=== PATIENT | female | born 1990 | race Caucasian/White ===

== ENCOUNTER 2018-10-22 19:44 | Emergency (ER) | payer OTHER ==
[2018-10-22 19:53] VITALS: BP 142/89; PULSE 78; TEMP 98; BMI 28.3
--- NOTE | 2018-10-22 19:55 | PDOC ---
Rapid Medical Evaluation Chief Complaint: Shortness of Breath Time Seen by Provider: 10/22/18 19:53 Medical Evaluation: Allergies Allergy/AdvReac Type Severity Reaction Status Date / Time No Known Allergies Allergy Verified 02/04/16 11:43 10/22/18 19:53 I have performed a brief in-person evaluation of this patient. The patient presents with a chief complaint of: with depression presenting with SOB and malaise after sniffing heroid which caused her to have syncopal episode 3 days ago and was sent to [facility] 2 days ago and she eloped but report has not been feeling right since then. report palpitations Pertinent physical exam findings: A&O x 3. heart RRR I have ordered the following:EKG, Utox, cbc, cmp, UA The patient will proceed to the ED for further evaluation Discharge Disposition - Diagnosis Heroin abuse, SOB (shortness of breath) - Referrals - Patient Instructions - Post Discharge Activity
--- NOTE | 2018-10-22 20:09 | PDOC ---
History of Present Illness - General Chief Complaint: Shortness of Breath Stated Complaint: SHORTNESS OF BREATH Time Seen by Provider: 10/22/18 19:53 - History of Present Illness Initial Comments: 10/22/18 20:07 28 yo F with h/o anxiety, depression, PCP, and Heroin abuse who p/w chest pain. Patient reports pleuritic, non radiating, unremitting, retrosternal chest pain worse with deep inhalation, and touch. Also endorses exertional shortness of breath (10/20/18) . Patient with recent overdose on Heroin, and fentanyl (). Reports EMS waking up in the street, with last memory of being in a laundry mat. Received 4 mg Narcan, and then later eloped from outside ED. Patient also endorses using PCP earlier that day. Pt. also reports feeling nervous and tremulous. Patient ran out of home dose Depakote 500 mg, Seroquel 200 mg, Clonazepam 2mg. Patient to f/u with psych tomorrow Dr. Columba Busby at [facility]. Patient denies N/V, F/C, HERNANDEZ, vision change, dysphagia, palpitations, orthopnea, PND, leg pain/swelling, urinary complaints, hematuria, BPR, abdominal pain, diarrhea, constipation, lightheadedness, weakness, sensory changes. PMHx: as noted above. Denies h/o ACS/NJ, stent placement, PE/DVT. ROS: as noted SHx: Recreational tobacco, and Etoh use. Allergies: NKDA Past History - Past Medical History Allergies/Adverse Reactions: Allergies Allergy/AdvReac Type Severity Reaction Status Date / Time No Known Allergies Allergy Verified 10/22/18 19:53 Home Medications: Ambulatory Orders NK [No Known Home Medication] 05/15/15 COPD: No Psychiatric Problems: Yes (DEPRESSION ANXIETY) - Surgical History Cholecystectomy: Yes - Immunization History Immunization Up to Date: Yes - Suicide/Smoking/Psychosocial Hx Smoking History: Current some day smoker Information on smoking cessation initiated: No Hx Alcohol Use: No Drug/Substance Use Hx: No Substance Use Type: Heroin, Opiates Review of Systems - Review of Systems Comments:: 10/22/18 20:07 GENERAL/CONSTITUTIONAL: No fever or chills. No weakness. HEAD, EYES, EARS, NOSE AND THROAT: No change in vision. No ear pain or discharge. No sore throat. CARDIOVASCULAR: No chest pain or shortness of breath RESPIRATORY: No cough, wheezing, or hemoptysis. GASTROINTESTINAL: No nausea, vomiting, diarrhea or constipation. GENITOURINARY: No dysuria, frequency, or change in urination. MUSCULOSKELETAL: No joint or muscle swelling or pain. No neck or back pain. SKIN: No rash NEUROLOGIC: No headache, vertigo, loss of consciousness, or change in strength/ sensation. ENDOCRINE: No increased thirst. No abnormal weight change HEMATOLOGIC/LYMPHATIC: No anemia, easy bleeding, or history of blood clots. ALLERGIC/IMMUNOLOGIC: No hives or skin allergy. *Physical Exam - Vital Signs Last Vital Signs Temp Pulse Resp BP Pulse Ox 98 F 78 18 142/89 100 10/22/18 19:47 10/22/18 19:47 10/22/18 19:47 10/22/18 19:47 10/22/18 19:47 - Physical Exam Comments: 10/22/18 20:08 GENERAL: Awake, alert, and fully oriented, in no acute distress HEAD: No signs of trauma, normocephalic, atraumatic EYES: PERRLA, EOMI, sclera anicteric, conjunctiva clear ENT: Hearing grossly normal, nares patent, oropharynx clear without exudates. Moist mucosa NECK: Normal ROM, supple, no lymphadenopathy, JVD, or masses LUNGS: No distress, speaks full sentences, clear to auscultation bilaterally HEART: Regular rate and rhythm, normal S1 and S2, no murmurs, rubs or gallops, peripheral pulses normal and equal bilaterally. CHEST: + Sternal ttp, with absent crepitus, and bony deformity. ABDOMEN: Soft, nontender, normoactive bowel sounds. No guarding, no rebound. No masses EXTREMITIES : Normal inspection, Normal range of motion, no edema. No clubbing or cyanosis. s SKIN: Warm, Dry, normal turgor, no rashes or lesions noted Moderate Sedation - Procedure Monitoring Vital Signs: Procedure Monitoring Vital Signs Temperature 98 F 10/22/18 19:47 Pulse Rate 78 10/22/18 19:47 Respiratory Rate 18 10/22/18 19:47 Blood Pressure 142/89 10/22/18 19:47 O2 Sat by Pulse Oximetry (%) 100 10/22/18 19:47 ED Treatment Course - LABORATORY CBC & Chemistry Diagram: 10/22/18 20:09 10/22/18 20:09 Medical Decision Making - Medical Decision Making 10/22/18 20:37 28 yo F with h/o anxiety, depression, PCP, and Heroin abuse who p/w pleuritic, non-radiating, unremitting, retrosternal chest pain worse with deep inhalation, and SOB. VSS, AF, A&OX3. + Reproducible sternal chest wall ttp. Physcial exam otherwise unremarkable. ACS/NJ r/o. R/o PNA. Possible MSK related pain, costochondritis. Low suspicion Ao dissection, Borhaave. NSAID, reassess. ED Course: [facility] Lab eval, EKG, CXR 10/22/18 20:43 10/22/18 20:45 EKG: NSR with absent DEBRA, STD. Nml interval duration and axis. 10/22/18 21:57 CBC,CMP: Unremarkable UA: Neg UDS: + PCP, Benzo 10/22/18 23:51 Preliminary CXR: unremarkable Patient pain stable. D/c with return precautions. Advised to f/u with PMD. *DC/Admit/Observation/Transfer Diagnosis at time of Disposition: Heroin abuse, SOB (shortness of breath) Chest pain Qualifiers: Chest pain type: chest pain on breathing Qualified Code(s): R07.1 - Chest pain on breathing - Discharge Dispostion Condition at time of disposition: Stable Decision to Admit order: No - Referrals Referrals: Delfino Markham MD [Primary Care Provider] - - Patient Instructions Printed Discharge Instructions: DI for Atypical Chest Pain Additional Instructions: Please return to the emergency department with any new or worsening symptoms or concerns. Please follow up with your primary care physician within 72 hours. - Post Discharge Activity Forms/Work/School Notes: Back to Work - Transfer to Acute Care Facility Transfer comment: 10/22/18 20:08 I attest to the information provided in this note. - Attestations Physician Attestion: 10/22/18 20:40 I attest to the information provided in this note.
[2018-10-22 20:29] LABS: BASO % 0.6 % (0-2.0); EOS % 2.5 % (0-4.5); HEMATOCRIT 38.9 % (32.4-45.2); HEMOGLOBIN 13.6 GM/dL (10.7-15.3); LYMPH % 30.3 % (8-40); MCH 29.6 pg (25.7-33.7); MEAN CELL VOLUME 84.7 fl (80-96); MEAN PLT VOLUME 8.4 fl (7.5-11.1); NEUT % 61.6 % (42.8-82.8); PLATELET COUNT 245 K/MM3 (134-434); RDW 13.9 % (11.6-15.6); WHITE BLOOD COUNT 7.8 K/mm3 (4.0-10.0)
[2018-10-22 20:32] LABS: URINE APPEARANCE CLEAR; URINE BILIRUBIN NEGATIVE (<2.0 mg/dL); URINE COLOR LTYELLOW; URINE GLUCOSE (UA) NEGATIVE (NEGATIVE); URINE KETONE NEGATIVE (NEGATIVE); URINE LEUK ESTERASE NEGATIVE (NEGATIVE); URINE NITRITE NEGATIVE (NEGATIVE); URINE PROTEIN NEGATIVE (NEGATIVE); URINE UROBILINOGEN NEGATIVE mg/dL (0.2-1.0)
[2018-10-22 21:05] LABS: ALBUMIN 3.7 g/dl (3.4-5.0); ALK PHOS 81 U/L (45-117); ANION GAP 8 MMOL/L (8-16); BILIRUBIN,TOTAL 0.2 mg/dL (0.2-1); BLOOD UREA NITROGEN 10 mg/dL (7-18); CALCIUM 8.8 mg/dL (8.5-10.1); CHLORIDE 107 mmol/L (98-107); CO2 28 mmol/L (21-32); CREATININE 0.9 mg/dL (0.55-1.3); GLUCOSE,RANDOM 68 mg/dL (74-106); SGOT/AST 9 U/L (15-37); SGPT/ALT 17 U/L (13-61); SODIUM 143 mmol/L (136-145); TOT PROT 7.7 g/dl (6.4-8.2)
--- NOTE | 2018-10-22 21:21 | PDOC ---
Attending Attestation - Resident Resident Name: OluKeyonMaximilian - ED Attending Attestation I have performed the following: I have examined & evaluated the patient, The case was reviewed & discussed with the resident, I agree w/resident's findings & plan, Exceptions are as noted - HPI HPI: 10/22/18 21:20 28y F hx of anxiety/depression presents with complaint of chest pain. On friday pt tried heroin that was cut with fentanyl for the first time and had passed out, EMS was called and ptw as given chest compressions and narcan. Was sent to [facility] and was there for 2 hrs and eloped. Pt states since then she has been having mild chest pain that is worse when she moves. she endorses some intermittent sob that is non exertional, also endorses some anxiety - notes she ran out of her meds for the past 3 days. Pt came today as she was concerned with the way she was feeling. pt denies any vomiting, abd pain, back pain, leg swelling, hemoptysis, fever/chils, cough. - Physicial Exam PE: 10/22/18 22:07 GENERAL: The patient is awake, alert, and fully oriented, Nontoxic - in no acute distress. HEAD: Normocephalic, atraumatic. EYES: extraocular movements intact, sclera anicteric, conjunctiva clear. ENT: Normal voice, Moist mucous membranes. NECK: Normal range of motion, supple LUNGS: Breath sounds equal, clear to auscultation bilaterally. No wheezes, no rhonchi, no rales. HEART: Regular rate and rhythm, normal S1 and S2 without murmur, rub or gallop. CHEST: mild reprodible midsternal cp ABDOMEN: Soft, nontender, No guarding, no rebound. No CVA tenderness EXTREMITIES: Normal range of motion, no edema, neg homans, no calf tendnress NEUROLOGICAL: No facial assymetry, Normal speech, moving all 4 extremities sptonaneously, PSYCH: Normal mood, normal affect. SKIN: Warm, Dry, normal turgor, - Medical Decision Making 10/22/18 22:08 Suspect that the patient's pain is secondary to her chest compressions and is muscular nature. Her other symptoms may be mild withdrawal symptoms. she is otherwise well-appearing in no distress she has an appointment with her psychiatrist tomorrow. No SI or HI. Discussed cessation of drug use with the patient. Will discharge with PMD follow-up Heart Score/ECG Review - ECG Impressions Comment:: 10/22/18 22:08 Twelve-lead EKG was performed and reviewed by me. There is normal sinus rhythm with a normal rate. rate of 69 The axis is normal. The intervals are normal. There is normal R wave progression There are no ST or T wave abnormalities. Impression: Normal twelve-lead EKG
[2018-10-22 21:36] LABS: COCAINE, UR NEGATIVE ng/ml (CUTOFF=300); METHADONE, UR NEGATIVE ng/ml (CUTOFF=300); OPIATES, URI NEGATIVE ng/ml (CUTOFF=300); URINE AMPHETAMINES NEGATIVE ng/ml (CUTOFF=500); URINE BARBITURATES NEGATIVE ng/ml (CUTOFF=200)
[2018-10-22 21:57] LABS: PHENCYCLIDINE,URINE POSITIVE ng/ml (CUTOFF=25); URINE BENZODIAZEPINES POSITIVE ng/ml (CUTOFF=200)
[2018-10-22] MEDS ORDERED: QUEtiapine FUMARATE 200 MG TABLET PO ONE (22:05)
[2018-10-22] MEDS ORDERED: QUEtiapine FUMARATE 100 MG TABLET (FP) ONE (22:25)
--- NOTE | 2018-10-24 17:25 | EKG ---
Test Reason : Blood Pressure : / mmHG Vent. Rate : 069 BPM Atrial Rate : 069 BPM P-R Int : 126 ms QRS Dur : 070 ms QT Int : 410 ms P-R-T Axes : 060 035 053 degrees QTc Int : 439 ms NORMAL SINUS RHYTHM WITH SINUS ARRHYTHMIA NORMAL ECG NO PREVIOUS ECGS AVAILABLE Confirmed by MD NICHO, NAI ([id number]) on 10/24/2018 5:24:37 PM Referred By: Confirmed By:NAI TORRE MD
== END 2018-10-23 00:47 | disposition home or self-care (01) ==
LOC: JER 19:44
DX: R07.89 Other chest pain (principal); R06.02 Shortness of breath; F11.10 Opioid abuse, uncomplicated
CPT/HCPCS: 36415; 71046-TC-FY; 80053; 80307; 81003; 82550; 84484; 84703; 85025; 86593; 87389; 87491; 87591; 93005; 93010; 99283-25

== ENCOUNTER 2019-05-13 08:57 | Inpatient (IN) | payer OTHER ==
[2019-05-13 10:40] VITALS: BMI 31.3
--- NOTE | 2019-05-13 12:47 | HP ---
COWS - Scale Resting Pulse: 0= [place] 80 or Below Sweatin= Chills/Flushing Restless Observation: 0= Sits Still Pupil Size: 0= Normal to Room Light Bone or Joint Aches: 4=Acute Joint/Muscle Pain Runny Nose/ Eye Tearin= Runny Nose/Eyes GI Upset > 30mins: 1= Stomach Cramp Tremor Observation: 0= None Yawning Observation: 0= None Anxiety or Irritability: 2=Irritable/Anxious Goose Flesh Skin: 0=Smooth Skin COWS Score: 10 CIWA Score - Admission Criteria OASAS Guidelines: Admission for Medically Managed Detox: Requires at least one of the followin. CIWA greater than 12 2. Seizures within the past 24 hours 3. Delirium tremens within the past 24 hours 4. Hallucinations within the past 24 hours 5. Acute intervention needed for co occurring medical disorder 6. Acute intervention needed for co occurring psychiatric disorder 7. Severe withdrawal that cannot be handled at a lower level of care (continued vomiting, continued diarrhea, abnormal vital signs) requiring intravenous medication and/or fluids 8. Admission ROS [facility] Allergies/Adverse Reactions: Allergies Allergy/AdvReac Type Severity Reaction Status Date / Time No Known Allergies Allergy Verified 05/13/19 10:29 History of Present Illness: pt here requesting detox from heroin use , reports 6 bags/day via inhalation , use since 2018 , this is the pt's first detox episode , latest use yesterday 7 pm , current symptoms as above . cannabis - " not too much " tobacco : " a few a day " pcp : 2 weeks ago denies other illicits or etoh . PMHX : denies PSHX : denies psych : depression, anxiety , bipolar d/o , has own psych @ [facility] 05/01/19 upt neg , children ages 10 & 8 w/ bio father in [place] shx : lives alone , unemployed Search Terms: juana aguayo, 1990 Search Date: 05/13/2019 12:56:18 PM The Drug Utilization Report below displays all of the controlled substance prescriptions, if any, that your patient has filled in the last twelve months. The information displayed on this report is compiled from pharmacy submissions to the Department, and accurately reflects the information as submitted by the pharmacies. This report was requested by: Mari Torres | Reference #: [id number] There are no results for the search terms that you entered. Exam Limitations: Clinical Condition - Ebola screening Have you traveled outside of the country in the last 21 days: No Have you had contact with anyone from an Ebola affected area: No Do you have a fever: No - Review of Systems Constitutional: See HPI EENT: reports: Other (glasses) Respiratory: reports: No Symptoms reported Cardiac: reports: No Symptoms Reported GI: reports: No Symptoms Reported : reports: No Symptoms Reported Musculoskeletal: reports: Muscle Pain Integumentary: reports: No Symptoms Reported Neuro: reports: No Symptoms reported Endocrine: reports: No Symptoms Reported Psychiatric: reports: Orientated x3, Depressed Patient History - Patient Medical History Hx Chronic Obstructive Pulmonary Disease (COPD): No - Patient Surgical History Hx Cholecystectomy: Yes - Smoking Cessation Smoking history: Current some day smoker Have you smoked in the past 12 months: Yes Hx Chewing Tobacco Use: No Initiated information on smoking cessation: No - Substances abused Heroin Substance route: Inhalation Frequency: Daily Amount used: 6 bags Age of first use: 27 Date of last use: 05/12/19 PCP Substance route: Smoking Frequency: 1-3 times last 30 days Amount used: 1 blunt Age of first use: 26 Date of last use: 04/29/19 Marijuana/Hashish Substance route: Smoking Frequency: 1-2 times per week Amount used: 1 blunt Age of first use: 13 Date of last use: 05/12/19 Family Disease History - Family Disease History Family History: Unable to Obtain Admission Physical Exam BHS - Vital Signs Vital Signs: Vital Signs - 24 hr 05/13/19 10:34 Temperature 97.7 F Pulse Rate 67 Respiratory 16 Rate Blood Pressure 101/64 - Physical General Appearance: Yes: Disheveled, Mild Distress, Irritable, Anxious HEENTM: Yes: EOMI, Normocephalic, Normal Voice Respiratory: Yes: Lungs Clear, Normal Breath Sounds, No Respiratory Distress, No Accessory Muscle Use Neck: Yes: No masses,lesions,Nodules, Trachea in good position Cardiology: Yes: Regular Rhythm, Regular Rate, S1, S2 Abdominal: Yes: Non Tender, Soft Back: Yes: Normal Inspection Extremities: Yes: Normal Range of Motion Neurological: Yes: Fully Oriented, Alert, Motor Strength 5/5 Integumentary: Yes: Warm - Diagnostic (1) Opioid abuse Current Visit: Yes Status: Acute (2) Cannabis use disorder, mild, abuse Current Visit: Yes Status: Acute (3) Tobacco use Current Visit: Yes Status: Chronic (4) Phencyclidine (PCP) use disorder, mild, abuse Current Visit: Yes Status: Suspected Breathalyzer - Breathalyzer Breathalyzer: 0 Urine Drug Screen - Test Device Lot number: [id number] Expiration date: 01/21/21 - Control Is test valid?: Yes - Results Drug screen NEGATIVE: No Urine drug screen results: THC-Marijuana, FEN-Fentanyl, MOP-Opiates, BZO- Benzodiazepines Inpatient Rehab Admission - Rehab Decision to Admit Inpatient rehab admission?: No
[2019-05-13] MEDS ORDERED: MAGNESIUM CITRATE 300 ML BOTTLE PO PRN (12:52)
[2019-05-13] MEDS ORDERED: MENTHOL/PHENOL 1 EACH UD MM PRN (12:52)
[2019-05-13] MEDS ORDERED: MAGNESIUM HYDROX 2400MG/30ML ORAL SUSPENSION 30 ML CUP PO PRN (12:52)
[2019-05-13] MEDS ORDERED: IBUPROFEN 400 MG TABLET (FP) PO PRN (12:52)
[2019-05-13] MEDS ORDERED: ACETAMINOPHEN 325 MG TABLET (FP) PO PRN ×2 (12:52)
[2019-05-13] MEDS ORDERED: BISMUTH SUBSALICYLATE 524 MG/30 ML UD PO PRN (12:52)
[2019-05-13] MEDS ORDERED: MAG HYDROX/AL HYDROX/SIMETH 30 ML UNIT-DOSE CUP PO PRN (12:52)
[2019-05-13] MEDS ORDERED: hydrOXYzine PAMOATE 50 MG CAPSULE (FP) PO PRN (12:57)
[2019-05-13] MEDS ORDERED: cloNIDine HCL 0.1 MG TABLET PO PRN (15:06)
[2019-05-13] MEDS: THIAMINE HCL 100 MG TABLET (FP) PO SCH (22:23)
[2019-05-13] MEDS: MELATONIN 5 MG TABLETS PO PRN (22:24)
[2019-05-13] MEDS ORDERED: METHADONE HCL 10 MG TABLET (FOR DETOX USE ONLY) PO ONE (23:00)
[2019-05-14] MEDS ORDERED: METHADONE HCL 5 MG TABLET (FOR DETOX USE ONLY) PO ONE (10:00)
[2019-05-14] MEDS: PRENATAL VITAMINS W/ FOLIC ACID TABLET (FP) PO SCH (10:43)
--- NOTE | 2019-05-14 10:49 | CONSULT ---
[facility] Psychiatric Consult - Data Date of interview: 05/14/19 Admission source: [facility] Identifying data: First admission to [facility] for this 28 y/o female self-referred for detoxification (heroin, phencyclidine, cannabis, nicotine). Interviewed at [address] [place] [address]. Patient is single, a mother of two, domiciled, unemployed and supported on [facility] benefits. Substance Abuse History: Discussed in this interview. Patient confirms use of PCP, cannabis and heroin. Details in current [facility] report as follows : Smoking history: Current some day smoker. Have you smoked in the past 12 months: Yes. Hx Chewing Tobacco Use: No. Initiated information on smoking cessation: No. - Substances abused. Heroin. Substance route: Inhalation. Frequency: Daily. Amount used: 6 bags. Age of first use: 27. Date of last use: 05/12/19. PCP. Substance route: Smoking. Frequency: 1-3 times last 30 days. Amount used : 1 blunt. Age of first use: 26. Date of last use: 04/29/19. Marijuana/ Hashish. Substance route: Smoking. Frequency: 1-2 times per week. Amount used : 1 blunt. Age of first use: 13. Date of last use: 05/12/19 Medical History: Patient endorses good general health. Noted history of cholecystectomy. Psychiatric History: Patient admits to a long standing history of psychiatric illness. Onset at age [age] (depression + suicidal ideation that lead to her first psychiatric hospitalization at [facility]). Ms Duran presents with a background of multiple psychiatric hospitalizations ([facility], [facility], [facility], [facility]). Diagnosed with Bipolar Disorder. Patient reports that she has not been adherent to OPD care at [facility] " for some time ". Admits to sporadic adherence to her medications (depakote 1000 mg/hs + seroquel 100 mg/hs + klonopin 1.5 mg/ bid). Last hospitalized in 2017 (sef-report). History of one suicide attempt via overdose with medications at age 16 (kept in ICU setting at [facility]). Physical/Sexual Abuse/Trauma History: Patient denies history of abuse. Additional Comment: Urine drug screen results: THC-Marijuana, FEN-Fentanyl, MOP- Opiates, BZO-Benzodiazepines. Noted. Mental Status Exam - Mental Status Exam Alert and Oriented to: Time, Place, Person Cognitive Function: Good Patient Appearance: Well Groomed (short stature, overweight, tattoos : arms + forearms + dorsal aspect of both hands) Mood: Nervous, Withdrawn, Anxious Affect: Mood Congruent, Constricted Patient Behavior: Fatigued, Appropriate, Cooperative Speech Pattern: Clear, Appropriate Voice Loudness: Normal Thought Process: Goal Oriented Thought Disorder: Not Present Hallucinations: Denies Suicidal Ideation: Denies Homicidal Ideation: Denies Insight/Judgement: Poor Sleep: Poorly, Difficulty falling asleep Appetite: Good Gait/Station: Normal Psychiatric Findings - Problem List ([place] 1, 2,3) (1) Heroin abuse Current Visit: Yes Status: Chronic (2) Cannabis use disorder, mild, abuse Current Visit: Yes Status: Chronic (3) Phencyclidine (PCP) use disorder, mild, abuse Current Visit: Yes Status: Chronic (4) Nicotine dependence Current Visit: Yes Status: Chronic (5) Substance induced mood disorder Current Visit: Yes Status: Chronic (6) Bipolar disorder Current Visit: Yes Status: Chronic (7) Insomnia Current Visit: Yes Status: Chronic (8) Non-compliance Current Visit: Yes Status: Chronic - Initial Treatment Plan Initial Treatment Plan: Psychoeducation. Sleep hygiene. Detoxification in progress. NA meetings. Motivational counseling provided in this session. Groups. Relapse prevention (MAT) : discussed. Medications resumed : depakote 500 mg po bid + seroquel 100 mg po hs. Side effects/benefits of each drug are discused with the patient. Made aware, in particular, of risk of metabolic syndrome, liver dysfunction, alopecia, blood dyscrasias, polycystic ovary syndrome, abnormal involuntary movements, sedation and orthostasis. Ms Duran verbalizes understanding of information and agrees to follow this plan of care. Verbal consent given to MD. Hannah.
[2019-05-14 11:44] LABS: HEMATOCRIT 35.3 % (32.4-45.2); HEMOGLOBIN 11.6 GM/dL (10.7-15.3); MCH 28.3 pg (25.7-33.7); MEAN PLT VOLUME 9.4 fl (7.5-11.1); PLATELET COUNT 186 K/MM3 (134-434); RBC 4.11 M/mm3 (3.60-5.2); RDW 13.6 % (11.6-15.6); WHITE BLOOD COUNT 8.3 K/mm3 (4.0-10.0)
[2019-05-14 11:53] LABS: ALBUMIN 3.2 g/dl (3.4-5.0); BILIRUBIN,TOTAL 0.4 mg/dL (0.2-1); BLOOD UREA NITROGEN 11.5 mg/dL (7-18); CALCIUM 8.8 mg/dL (8.5-10.1); CREATININE 0.7 mg/dL (0.55-1.3); POTASSIUM 4.2 mmol/L (3.5-5.1); TOT PROT 6.4 g/dl (6.4-8.2)
--- NOTE | 2019-05-14 12:24 | PN ---
BHS COWS - Scale Resting Pulse: 0= HI 80 or Below Sweatin= Chills/Flushing Restless Observation: 0= Sits Still Pupil Size: 0= Normal to Room Light Bone or Joint Aches: 4=Acute Joint/Muscle Pain Runny Nose/ Eye Tearin= None GI Upset > 30mins: 1= Stomach Cramp Tremor Observation of Outstretched Hands: 0= None Yawning Observation: 1= 1-2x During Session Anxiety or Irritability: 4=Extreme Anxiety Goose Flesh Skin: 3=Piloerection COWS Score: 14 BHS Progress Note (SOAP) Subjective: Anxious, Body Aches, Stomach Upset, Fatigue, Interrupted Sleep, Poor Appetite. Objective: PATIENT A & O X 3. IN NO ACUTE DISTRESS. 05/14/19 12:25 Vital Signs Temperature 97.2 F L 05/14/19 09:38 Pulse Rate 52 L 05/14/19 09:38 Respiratory Rate 18 05/14/19 09:38 Blood Pressure 98/53 L 05/14/19 09:38 O2 Sat by Pulse Oximetry (%) Laboratory Tests 05/13/19 05/14/19 05/14/19 11:57 07:00 07:00 WBC 8.3 RBC 4.11 Hgb 11.6 Hct 35.3 MCV 86.0 MCH 28.3 MCHC 33.0 RDW 13.6 Plt Count 186 D MPV 9.4 D Sodium 141 Potassium 4.2 Chloride 111 H Carbon Dioxide 27 Anion Gap 4 L BUN 11.5 Creatinine 0.7 Est GFR (CKD-EPI)AfAm 135.70 Est GFR (CKD-EPI)NonAf 117.08 Random Glucose 84 Calcium 8.8 Total Bilirubin 0.4 AST 12 L ALT 17 Alkaline Phosphatase 57 Total Protein 6.4 Albumin 3.2 L POC Urine HCG, Qual Negative LABS NOTED. ADMISSION RPR RESULT PENDING. 05/14/19 12:26 Assessment: 05/14/19 12:27 WITHDRAWAL SYMPTOMS. Plan: CONTINUE DETOX. INCREASE DAILY PO FLUID / WATER INTAKE ENSURE PO FOR CALORIC SUPPLEMENTATION.
[2019-05-14] MEDS: diazePAM 5 MG TABLET PO PRN ×3 (14:07→22:21)
[2019-05-14] MEDS: DIVALPROEX SODIUM 500 MG TABLET E.C. PO SCH (22:21)
[2019-05-14] MEDS: QUEtiapine FUMARATE 100 MG TABLET (FP) PO SCH (22:21)
[2019-05-14] MEDS: THIAMINE HCL 100 MG TABLET (FP) PO SCH (22:21)
[2019-05-14] MEDS: MELATONIN 5 MG TABLETS PO PRN (22:23)
[2019-05-15] MEDS ORDERED: METHADONE HCL 10 MG TABLET (FOR DETOX USE ONLY) PO ONE (10:00)
[2019-05-15] MEDS: PRENATAL VITAMINS W/ FOLIC ACID TABLET (FP) PO SCH (10:23)
[2019-05-15] MEDS: DIVALPROEX SODIUM 500 MG TABLET E.C. PO SCH ×2 (10:23→22:38)
[2019-05-15] MEDS: diazePAM 5 MG TABLET PO PRN ×3 (10:25→19:53)
--- NOTE | 2019-05-15 11:09 | PN ---
S COWS - Scale Resting Pulse: 0= [place] 80 or Below Sweatin= Chills/Flushing Restless Observation: 1= Difficult to Sit Still Pupil Size: 0= Normal to Room Light Bone or Joint Aches: 4=Acute Joint/Muscle Pain Runny Nose/ Eye Tearin= None GI Upset > 30mins: 1= Stomach Cramp Tremor Observation of Outstretched Hands: 2= Slight Tremor Visible Yawning Observation: 1= 1-2x During Session Anxiety or Irritability: 2=Irritable/Anxious Goose Flesh Skin: 0=Smooth Skin COWS Score: 12 S Progress Note (SOAP) Subjective: c/o stomach cramp, irritability, muscle aches, and interrupted sleep. Objective: 05/15/19 11:08 Vital Signs 05/15/19 05/15/19 05/15/19 03:30 06:48 09:58 Temperature 97 F L 97.5 F L Pulse Rate 47 L 79 Respiratory 18 16 18 Rate Blood Pressure 95/60 101/70 Lab Results WBC 8.3 K/mm3 (4.0-10.0) 05/14/19 07:00 RBC 4.11 M/mm3 (3.60-5.2) 05/14/19 07:00 Hgb 11.6 GM/dL (10.7-15.3) 05/14/19 07:00 Hct 35.3 % (32.4-45.2) 05/14/19 07:00 MCV 86.0 fl (80-96) 05/14/19 07:00 MCHC 33.0 g/dl (32.0-36.0) 05/14/19 07:00 RDW 13.6 % (11.6-15.6) 05/14/19 07:00 Plt Count 186 K/MM3 (134-434) D 05/14/19 07:00 Sodium 141 mmol/L (136-145) 05/14/19 07:00 Potassium 4.2 mmol/L (3.5-5.1) 05/14/19 07:00 Chloride 111 mmol/L (98-107) H 05/14/19 07:00 Carbon Dioxide 27 mmol/L (21-32) 05/14/19 07:00 Anion Gap 4 MMOL/L (8-16) L 05/14/19 07:00 BUN 11.5 mg/dL (7-18) 05/14/19 07:00 Creatinine 0.7 mg/dL (0.55-1.3) 05/14/19 07:00 Random Glucose 84 mg/dL (74-106) 05/14/19 07:00 Calcium 8.8 mg/dL (8.5-10.1) 05/14/19 07:00 Labs noted. Assessment: 05/15/19 11:08 AOX3, in no acute distress. Full rom, ambulates in the unit. withdrawal signs Plan: continue detox.
[2019-05-15] MEDS: QUEtiapine FUMARATE 100 MG TABLET (FP) PO SCH (22:38)
[2019-05-15] MEDS: THIAMINE HCL 100 MG TABLET (FP) PO SCH (22:38)
[2019-05-15] MEDS: MELATONIN 5 MG TABLETS PO PRN (22:38)
[2019-05-16] MEDS: diazePAM 5 MG TABLET PO PRN (05:46)
[2019-05-16] MEDS ORDERED: METHADONE HCL 5 MG TABLET (FOR DETOX USE ONLY) PO ONE (06:00)
[2019-05-16 06:45] VITALS: BP 94/60; PULSE 61; TEMP 97
[2019-05-16] MEDS: DIVALPROEX SODIUM 500 MG TABLET E.C. PO SCH (09:46)
[2019-05-16] MEDS: PRENATAL VITAMINS W/ FOLIC ACID TABLET (FP) PO SCH (09:46)
== END 2019-05-16 10:00 | disposition home or self-care (01) | DRG 775 ==
LOC: YASAS 08:57 → Y3N 13:04
PROVIDERS: ADMIT Surgery; ATTEND Surgery
PROC: HZ2ZZZZ Detoxification Services for Substance Abuse Treatment (ICD-10-PCS; principal; 2019-05-13)
DX: F10.10 Alcohol abuse, uncomplicated (principal); F12.10 Cannabis abuse, uncomplicated; F16.10 Hallucinogen abuse, uncomplicated; F17.210 Nicotine dependence, cigarettes, uncomplicated; Z91.19 Patient's noncompliance with other medical treatment and regimen
CPT/HCPCS: 36415; 80053; 80164; 81025; 85027; 86593

== ENCOUNTER 2021-11-26 11:31 | Inpatient (IN) | payer OTHER ==
[2021-11-26] MEDS ORDERED: methaDONE HCL 10 MG TABLET (FOR DETOX USE ONLY) PO ONE ×2 (13:00→15:00)
[2021-11-26 13:49] VITALS: BMI 40.7
[2021-11-26] MEDS ORDERED: ACETAMINOPHEN 325 MG TABLET (FP) PO PRN ×2 (14:30)
[2021-11-26] MEDS ORDERED: NICOTINE 10 MG CARTRIDGE (INHALER) IH PRN (14:30)
[2021-11-26] MEDS ORDERED: BISMUTH SUBSALICYLATE 524 MG/30 ML PO PRN (14:30)
[2021-11-26] MEDS ORDERED: ONDANSETRON *ODT* 4 MG TABLET SL PRN (14:30)
[2021-11-26] MEDS ORDERED: MENTHOL/PHENOL 1 EACH UD MM PRN (14:30)
[2021-11-26] MEDS ORDERED: IBUPROFEN 400 MG TABLET (FP) PO PRN (14:30)
[2021-11-26] MEDS ORDERED: MAGNESIUM CITRATE 300 ML BOTTLE PO PRN (14:30)
[2021-11-26] MEDS ORDERED: MAG HYDROX/AL HYDROX/SIMETH 30 ML UNIT-DOSE CUP PO PRN (14:30)
[2021-11-26] MEDS ORDERED: MAGNESIUM HYDROX 2400MG/30ML ORAL SUSPENSION 30 ML CUP PO PRN (14:30)
[2021-11-26] MEDS ORDERED: methaDONE HCL 10 MG TABLET (FOR DETOX USE ONLY) ONE (14:57)
[2021-11-26] MEDS: METHOCARBAMOL 500 MG TABLET PO PRN (15:50)
[2021-11-26] MEDS: hydrOXYzine PAMOATE 25 MG CAPSULE (FP) PO SCH ×2 (17:35→23:01)
[2021-11-26] MEDS: cloNIDine HCL 0.1 MG TABLET PO PRN ×2 (17:37→23:01)
[2021-11-26] MEDS ORDERED: MELATONIN 5 MG TABLETS PO SCH (22:00)
[2021-11-26] MEDS: THIAMINE HCL 100 MG TABLET (FP) PO SCH (23:01)
[2021-11-27] MEDS: hydrOXYzine PAMOATE 25 MG CAPSULE (FP) PO SCH ×5 (05:20→22:14)
[2021-11-27] MEDS ORDERED: methaDONE HCL 10 MG TABLET (FOR DETOX USE ONLY) ONE (09:20)
[2021-11-27] MEDS: PRENATAL VITAMINS W/ FOLIC ACID TABLET (FP) PO SCH (10:02)
[2021-11-27] MEDS: METHOCARBAMOL 500 MG TABLET PO PRN (10:03)
[2021-11-27 12:25] LABS: HEMOGLOBIN 14.7 GM/dL (10.7-15.3); MCH 27.6 pg (25.7-33.7); MCHC 33.3 g/dl (32.0-36.0); MEAN CELL VOLUME 82.7 fl (80-96); MEAN PLT VOLUME 9.2 fl (7.5-11.1); PLATELET COUNT 370 10^3/uL (134-434); RBC 5.32 M/mm3 (3.60-5.2); RDW 13.4 % (11.6-15.6); WHITE BLOOD COUNT 10.7 K/mm3 (4.0-10.0)
[2021-11-27 12:47] LABS: BLOOD UREA NITROGEN 11.5 mg/dL (7-18); CALCIUM 9.8 mg/dL (8.5-10.1)
[2021-11-27 12:48] LABS: ALBUMIN 4.4 g/dl (3.4-5.0)
[2021-11-27 12:49] LABS: BILIRUBIN,TOTAL 0.3 mg/dL (0.2-1); TOT PROT 8.8 g/dl (6.4-8.2)
[2021-11-27] MEDS: cloNIDine HCL 0.1 MG TABLET PO PRN ×3 (12:51→22:42)
[2021-11-27] MEDS: QUEtiapine FUMARATE 25 MG TABLET PO SCH (12:51)
[2021-11-27] MEDS ORDERED: POTASSIUM CHLORIDE TABS 20 MEQ TABLET.ER (FP) PO ONE ×2 (13:41→18:50)
[2021-11-27] MEDS: THIAMINE HCL 100 MG TABLET (FP) PO SCH (22:14)
[2021-11-27] MEDS: QUEtiapine FUMARATE 100 MG TABLET (FP) PO SCH (22:15)
[2021-11-28] MEDS: hydrOXYzine PAMOATE 25 MG CAPSULE (FP) PO SCH ×5 (06:09→22:10)
[2021-11-28] MEDS: METHOCARBAMOL 500 MG TABLET PO PRN (06:09)
[2021-11-28] MEDS ORDERED: methaDONE HCL 10 MG TABLET (FOR DETOX USE ONLY) PO ONE (10:00)
[2021-11-28] MEDS: PRENATAL VITAMINS W/ FOLIC ACID TABLET (FP) PO SCH (10:30)
[2021-11-28] MEDS: QUEtiapine FUMARATE 25 MG TABLET PO SCH (10:31)
[2021-11-28] MEDS: ESCITALOPRAM OXALATE 20 MG TABLET PO SCH (10:31)
[2021-11-28] MEDS: cloNIDine HCL 0.1 MG TABLET PO PRN (17:59)
[2021-11-28] MEDS: THIAMINE HCL 100 MG TABLET (FP) PO SCH (22:10)
[2021-11-28] MEDS: QUEtiapine FUMARATE 100 MG TABLET (FP) PO SCH (22:10)
[2021-11-29] MEDS: hydrOXYzine PAMOATE 25 MG CAPSULE (FP) PO SCH ×6 (06:40→22:03)
[2021-11-29] MEDS ORDERED: methaDONE HCL 10 MG TABLET (FOR DETOX USE ONLY) ONE (09:42)
[2021-11-29] MEDS: PRENATAL VITAMINS W/ FOLIC ACID TABLET (FP) PO SCH (10:24)
[2021-11-29] MEDS: METHOCARBAMOL 500 MG TABLET PO PRN (10:24)
[2021-11-29] MEDS: QUEtiapine FUMARATE 25 MG TABLET PO SCH (10:24)
[2021-11-29] MEDS: ESCITALOPRAM OXALATE 20 MG TABLET PO SCH (10:25)
[2021-11-29] MEDS: QUEtiapine FUMARATE 100 MG TABLET (FP) PO SCH (22:03)
[2021-11-29] MEDS: THIAMINE HCL 100 MG TABLET (FP) PO SCH (22:03)
[2021-11-30] MEDS: hydrOXYzine PAMOATE 25 MG CAPSULE (FP) PO SCH ×5 (06:05→22:45)
[2021-11-30] MEDS ORDERED: methaDONE HCL 10 MG TABLET (FOR DETOX USE ONLY) PO ONE (10:00)
[2021-11-30] MEDS: METHOCARBAMOL 500 MG TABLET PO PRN (10:16)
[2021-11-30] MEDS: ESCITALOPRAM OXALATE 20 MG TABLET PO SCH (10:16)
[2021-11-30] MEDS: QUEtiapine FUMARATE 25 MG TABLET PO SCH (10:16)
[2021-11-30] MEDS: PRENATAL VITAMINS W/ FOLIC ACID TABLET (FP) PO SCH (10:16)
[2021-11-30] MEDS: QUEtiapine FUMARATE 100 MG TABLET (FP) PO SCH (22:45)
[2021-11-30] MEDS: THIAMINE HCL 100 MG TABLET (FP) PO SCH (22:45)
[2021-11-30 23:31] VITALS: TEMP 97.3
[2021-12-01 06:35] VITALS: BP 135/64; PULSE 71
[2021-12-01] MEDS: hydrOXYzine PAMOATE 25 MG CAPSULE (FP) PO SCH ×2 (07:45→10:58)
[2021-12-01] MEDS: QUEtiapine FUMARATE 25 MG TABLET PO SCH (10:58)
[2021-12-01] MEDS: PRENATAL VITAMINS W/ FOLIC ACID TABLET (FP) PO SCH (10:58)
[2021-12-01] MEDS: METHOCARBAMOL 500 MG TABLET PO PRN (10:58)
[2021-12-01] MEDS: ESCITALOPRAM OXALATE 20 MG TABLET PO SCH (10:58)
== END 2021-12-01 11:40 | disposition home or self-care (01) | DRG 773 ==
LOC: YASAS 11:31 → Y6N 14:39
PROVIDERS: ADMIT Allergy & Immunology; ATTEND Allergy & Immunology
PROC: HZ2ZZZZ Detoxification Services for Substance Abuse Treatment (ICD-10-PCS; principal; 2021-11-26)
DX: F11.23 Opioid dependence with withdrawal (principal); F10.10 Alcohol abuse, uncomplicated; F17.210 Nicotine dependence, cigarettes, uncomplicated; F19.282 Other psychoactive substance dependence with psychoactive substance-induced sleep disorder; F19.24 Other psychoactive substance dependence with psychoactive substance-induced mood disorder; F31.9 Bipolar disorder, unspecified; F41.9 Anxiety disorder, unspecified; F32.A Depression, unspecified; E87.6 Hypokalemia; G47.00 Insomnia, unspecified; M54.50 Low back pain, unspecified; Z59.01 Sheltered homelessness; Z56.0 Unemployment, unspecified
CPT/HCPCS: 36415; 80053; 81025; 84132; 85027; 86780; C9803; J0735; Q0162; U0003; U0005

== ENCOUNTER 2022-05-14 11:03 | Inpatient (IN) | payer OTHER ==
[2022-05-14] MEDS ORDERED: MAGNESIUM HYDROX 2400MG/30ML ORAL SUSPENSION 30 ML CUP PO PRN (11:37)
[2022-05-14] MEDS ORDERED: MAG HYDROX/AL HYDROX/SIMETH 30 ML UNIT-DOSE CUP PO PRN (11:37)
[2022-05-14] MEDS ORDERED: IBUPROFEN 400 MG TABLET (FP) PO PRN (11:37)
[2022-05-14] MEDS ORDERED: ONDANSETRON *ODT* 4 MG TABLET SL PRN (11:37)
[2022-05-14] MEDS ORDERED: methaDONE HCL 10 MG TABLET (FOR DETOX USE ONLY) PO ONE (11:37)
[2022-05-14] MEDS ORDERED: MAGNESIUM CITRATE 300 ML BOTTLE PO PRN (11:37)
[2022-05-14] MEDS ORDERED: LOPERAMIDE HCL 2 MG CAPSULE PO PRN (11:37)
[2022-05-14] MEDS ORDERED: BENZOCAINE/MENTHOL (CHLORASEPTIC ) LOZENGE MM PRN (11:37)
[2022-05-14] MEDS ORDERED: DICYCLOMINE HCL 10 MG CAPSULE PO PRN (11:37)
[2022-05-14] MEDS ORDERED: ACETAMINOPHEN 325 MG TABLET (FP) PO PRN ×2 (11:37)
[2022-05-14] MEDS ORDERED: BISMUTH SUBSALICYLATE 262 MG/15 ML BTL PO PRN (11:37)
[2022-05-14] MEDS ORDERED: methaDONE HCL 10 MG TABLET (FOR DETOX USE ONLY) ONE (12:06)
[2022-05-14] MEDS ORDERED: IBUPROFEN 400 MG TABLET (FP) PO ONE (12:07)
[2022-05-14] MEDS: METHOCARBAMOL 500 MG TABLET PO PRN ×2 (12:27→17:52)
[2022-05-14] MEDS: BACITRACIN 0.9 GM PACKET TP SCH ×2 (12:28→22:31)
[2022-05-14] MEDS: PRENATAL VITAMINS W/ FOLIC ACID TABLET (FP) PO SCH (12:28)
[2022-05-14] MEDS: COLLOIDAL OATMEAL 1 BAR EACH TP PRN (12:44)
[2022-05-14] MEDS: hydrOXYzine PAMOATE 25 MG CAPSULE (FP) PO SCH ×3 (13:16→22:32)
[2022-05-14 13:17] LABS: HEMATOCRIT 36.4 % (32.4-45.2); HEMOGLOBIN 12.3 GM/dL (10.7-15.3); MCHC 33.8 g/dl (32.0-36.0); MEAN CELL VOLUME 82.8 fl (80-96); MEAN PLT VOLUME 8.3 fl (7.5-11.1); PLATELET COUNT 282 10^3/uL (134-434); RBC 4.39 M/mm3 (3.60-5.2); RDW 15.1 % (11.6-15.6); WHITE BLOOD COUNT 9.6 K/mm3 (4.0-10.0)
[2022-05-14 13:51] LABS: ALBUMIN 3.8 g/dl (3.4-5.0); BLOOD UREA NITROGEN 15.4 mg/dL (7-18); CALCIUM 9.2 mg/dL (8.5-10.1)
[2022-05-14 13:54] LABS: CREATININE 1.1 mg/dL (0.55-1.3)
[2022-05-14 13:56] LABS: BILIRUBIN,TOTAL 0.5 mg/dL (0.2-1); TOT PROT 8.5 g/dl (6.4-8.2)
[2022-05-14] MEDS ORDERED: QUEtiapine FUMARATE 100 MG TABLET (FP) PO SCH (14:00)
[2022-05-14 14:55] LABS: HIV INTERPRETATION NEGATIVE (NEGATIVE)
[2022-05-14] MEDS: cloNIDine HCL 0.1 MG TABLET PO PRN (17:52)
[2022-05-14] MEDS: THIAMINE HCL 100 MG TABLET (FP) PO SCH (22:31)
[2022-05-14] MEDS: QUEtiapine FUMARATE 200 MG TABLET PO SCH (22:32)
[2022-05-14] MEDS: MELATONIN 5 MG TABLETS PO SCH ×2 (22:34→23:35)
[2022-05-15] MEDS: hydrOXYzine PAMOATE 25 MG CAPSULE (FP) PO SCH ×5 (05:48→22:08)
[2022-05-15] MEDS ORDERED: methaDONE HCL 10 MG TABLET (FOR DETOX USE ONLY) ONE (09:25)
[2022-05-15] MEDS ORDERED: ARIPiprazole 10 MG TABLET PO SCH (10:00)
[2022-05-15] MEDS: BACITRACIN 0.9 GM PACKET TP SCH ×3 (10:19→22:45)
[2022-05-15] MEDS: PRENATAL VITAMINS W/ FOLIC ACID TABLET (FP) PO SCH (10:19)
[2022-05-15] MEDS: METHOCARBAMOL 500 MG TABLET PO PRN ×2 (10:20→18:00)
[2022-05-15] MEDS: ARIPiprazole 10 MG TABLET PO SCH (10:20)
[2022-05-15] MEDS: cloNIDine HCL 0.1 MG TABLET PO PRN (18:00)
[2022-05-15] MEDS: IBUPROFEN 600 MG TABLET (FP) PO PRN (18:02)
[2022-05-15] MEDS: THIAMINE HCL 100 MG TABLET (FP) PO SCH (22:08)
[2022-05-15] MEDS: MELATONIN 5 MG TABLETS PO SCH (22:08)
[2022-05-15] MEDS: QUEtiapine FUMARATE 200 MG TABLET PO SCH (22:08)
[2022-05-16] MEDS: hydrOXYzine PAMOATE 25 MG CAPSULE (FP) PO SCH ×5 (06:28→22:11)
[2022-05-16] MEDS ORDERED: methaDONE HCL 10 MG TABLET (FOR DETOX USE ONLY) PO ONE (10:00)
[2022-05-16] MEDS: PRENATAL VITAMINS W/ FOLIC ACID TABLET (FP) PO SCH (10:06)
[2022-05-16] MEDS: ARIPiprazole 10 MG TABLET PO SCH (10:06)
[2022-05-16] MEDS: BACITRACIN 0.9 GM PACKET TP SCH ×2 (10:06→22:11)
[2022-05-16] MEDS: METHOCARBAMOL 500 MG TABLET PO PRN ×2 (10:06→19:46)
[2022-05-16] MEDS: IBUPROFEN 600 MG TABLET (FP) PO PRN (10:08)
[2022-05-16] MEDS: cloNIDine HCL 0.1 MG TABLET PO PRN (19:46)
[2022-05-16] MEDS: QUEtiapine FUMARATE 200 MG TABLET PO SCH (22:11)
[2022-05-16] MEDS: THIAMINE HCL 100 MG TABLET (FP) PO SCH (22:11)
[2022-05-16] MEDS: MELATONIN 5 MG TABLETS PO SCH (22:11)
[2022-05-17] MEDS: hydrOXYzine PAMOATE 25 MG CAPSULE (FP) PO SCH ×5 (04:00→22:14)
[2022-05-17] MEDS: METHOCARBAMOL 500 MG TABLET PO PRN ×3 (04:06→20:06)
[2022-05-17] MEDS: IBUPROFEN 600 MG TABLET (FP) PO PRN (04:07)
[2022-05-17] MEDS ORDERED: methaDONE HCL 10 MG TABLET (FOR DETOX USE ONLY) ONE (09:31)
[2022-05-17] MEDS: PRENATAL VITAMINS W/ FOLIC ACID TABLET (FP) PO SCH (10:21)
[2022-05-17] MEDS: ARIPiprazole 10 MG TABLET PO SCH (10:21)
[2022-05-17] MEDS: BACITRACIN 0.9 GM PACKET TP SCH ×2 (10:21→22:14)
[2022-05-17] MEDS: MICONAZOLE NITRATE 2% VAGINAL CREAM 45 GM TUBE VG SCH ×2 (13:42→22:55)
[2022-05-17] MEDS: NICOTINE 10 MG CARTRIDGE (INHALER) IH PRN (20:07)
[2022-05-17] MEDS: MELATONIN 5 MG TABLETS PO SCH (22:14)
[2022-05-17] MEDS: QUEtiapine FUMARATE 100 MG TABLET (FP) PO SCH (22:14)
[2022-05-17] MEDS: THIAMINE HCL 100 MG TABLET (FP) PO SCH (22:14)
[2022-05-17] MEDS: COLLOIDAL OATMEAL 1 BAR EACH TP PRN (23:04)
[2022-05-18] MEDS: METHOCARBAMOL 500 MG TABLET PO PRN ×3 (05:44→17:51)
[2022-05-18] MEDS: hydrOXYzine PAMOATE 25 MG CAPSULE (FP) PO SCH ×5 (05:44→22:02)
[2022-05-18] MEDS ORDERED: methaDONE HCL 10 MG TABLET (FOR DETOX USE ONLY) PO ONE (10:00)
[2022-05-18] MEDS: BACITRACIN 0.9 GM PACKET TP SCH (10:19)
[2022-05-18] MEDS: ARIPiprazole 10 MG TABLET PO SCH (10:20)
[2022-05-18] MEDS: PRENATAL VITAMINS W/ FOLIC ACID TABLET (FP) PO SCH (10:21)
[2022-05-18] MEDS: NICOTINE 10 MG CARTRIDGE (INHALER) IH PRN (17:52)
[2022-05-18] MEDS: THIAMINE HCL 100 MG TABLET (FP) PO SCH (22:02)
[2022-05-18] MEDS: MELATONIN 5 MG TABLETS PO SCH (22:02)
[2022-05-18] MEDS: QUEtiapine FUMARATE 100 MG TABLET (FP) PO SCH (22:03)
[2022-05-18] MEDS: MICONAZOLE NITRATE 2% VAGINAL CREAM 45 GM TUBE VG SCH (23:48)
[2022-05-19 01:07] VITALS: BP 132/77; PULSE 60; TEMP 98.5
== END 2022-05-19 02:26 | disposition left against medical advice (07) | DRG 770 ==
LOC: YASAS 11:03 → Y6N 12:07
PROVIDERS: ADMIT Allergy & Immunology; ATTEND Surgery
PROC: HZ2ZZZZ Detoxification Services for Substance Abuse Treatment (ICD-10-PCS; principal; 2022-05-14)
DX: F11.23 Opioid dependence with withdrawal (principal); F14.20 Cocaine dependence, uncomplicated; F12.20 Cannabis dependence, uncomplicated; F31.9 Bipolar disorder, unspecified; F19.24 Other psychoactive substance dependence with psychoactive substance-induced mood disorder; F19.282 Other psychoactive substance dependence with psychoactive substance-induced sleep disorder; F19.280 Other psychoactive substance dependence with psychoactive substance-induced anxiety disorder; F41.9 Anxiety disorder, unspecified
CPT/HCPCS: 36415; 80053; 81025; 82962; 85027; 86780; 87389; 87811; C9803-CS; J0735; U0003; U0005

== ENCOUNTER 2022-12-16 10:58 | Inpatient (IN) | payer OTHER ==
[2022-12-16 11:49] VITALS: BMI 28.1
[2022-12-16] MEDS ORDERED: LOPERAMIDE HCL 2 MG CAPSULE PO PRN (12:39)
[2022-12-16] MEDS ORDERED: BENZOCAINE/MENTHOL (CHLORASEPTIC ) LOZENGE MM PRN (12:39)
[2022-12-16] MEDS ORDERED: NICOTINE 10 MG CARTRIDGE (INHALER) IH PRN (12:39)
[2022-12-16] MEDS ORDERED: POLYETHYLENE GLYCOL (HEALTHYLAX) 3350 17 GM PACKET PO PRN (12:39)
[2022-12-16] MEDS ORDERED: NICOTINE POLACRILEX 2 MG GUM BUC PRN (12:39)
[2022-12-16] MEDS ORDERED: IBUPROFEN 600 MG TABLET (FP) PO PRN (12:39)
[2022-12-16] MEDS ORDERED: MAG HYDROX/AL HYDROX/SIMETH 30 ML UNIT-DOSE CUP PO PRN (12:39)
[2022-12-16] MEDS ORDERED: ONDANSETRON *ODT* 4 MG TABLET SL PRN (12:39)
[2022-12-16] MEDS ORDERED: BISMUTH SUBSALICYLATE 524 MG/30 ML PO PRN (12:39)
[2022-12-16] MEDS ORDERED: NALOXONE HCL (KLOXXADO) 8 MG SPRAY NS PRN (12:39)
[2022-12-16] MEDS ORDERED: DICYCLOMINE HCL 10 MG CAPSULE PO PRN (12:39)
[2022-12-16] MEDS ORDERED: MAGNESIUM HYDROX 2400MG/30ML ORAL SUSPENSION 30 ML CUP PO PRN (12:39)
[2022-12-16] MEDS ORDERED: ACETAMINOPHEN 325 MG TABLET (FP) PO PRN ×2 (12:39)
[2022-12-16] MEDS ORDERED: IBUPROFEN 400 MG TABLET (FP) PO PRN (12:39)
[2022-12-16] MEDS ORDERED: diazePAM 2 MG TABLET PO PRN (12:47)
[2022-12-16] MEDS ORDERED: methaDONE HCL 10 MG TABLET (FOR DETOX USE ONLY) ONE (13:41)
[2022-12-16] MEDS ORDERED: PRENATAL VITAMINS W/ FOLIC ACID TABLET (FP) PO ONE (13:42)
[2022-12-16] MEDS ORDERED: methaDONE HCL 10 MG TABLET (FOR DETOX USE ONLY) PO ONE (13:45)
[2022-12-16] MEDS: PRENATAL VITAMINS W/ FOLIC ACID TABLET (FP) PO SCH (13:47)
[2022-12-16] MEDS: hydrOXYzine PAMOATE 25 MG CAPSULE (FP) PO PRN ×2 (14:46→17:57)
[2022-12-16] MEDS: METHOCARBAMOL 500 MG TABLET PO PRN (14:47)
[2022-12-16] MEDS: diazePAM 5 MG TABLET PO PRN ×2 (14:47→17:56)
[2022-12-16 15:50] LABS: ALBUMIN 3.9 g/dl (3.4-5.0); CALCIUM 10.1 mg/dL (8.5-10.1)
[2022-12-16 15:51] LABS: BLOOD UREA NITROGEN 8.6 mg/dL (7-18)
[2022-12-16 15:52] LABS: CREATININE 0.8 mg/dL (0.55-1.3)
[2022-12-16 15:54] LABS: BILIRUBIN,TOTAL 0.2 mg/dL (0.2-1); TOT PROT 8.6 g/dl (6.4-8.2)
[2022-12-16 16:12] LABS: HEMATOCRIT 39.8 % (32.4-45.2); HEMOGLOBIN 13.1 GM/dL (10.7-15.3); MCH 27.1 pg (25.7-33.7); MEAN CELL VOLUME 82.3 fl (80-96); MEAN PLT VOLUME 8.2 fl (7.5-11.1); PLATELET COUNT 293 10^3/uL (134-434); RBC 4.84 M/mm3 (3.60-5.2); RDW 14.1 % (11.6-15.6); WHITE BLOOD COUNT 8.3 K/mm3 (4.0-10.0)
[2022-12-16] MEDS: MELATONIN 5 MG TABLETS PO SCH (22:09)
[2022-12-16] MEDS: THIAMINE HCL 100 MG TABLET (FP) PO SCH (22:09)
[2022-12-16 22:11] LABS: HIV INTERPRETATION NEGATIVE (NEGATIVE)
[2022-12-17] MEDS: hydrOXYzine PAMOATE 25 MG CAPSULE (FP) PO PRN ×3 (00:09→17:28)
[2022-12-17] MEDS: diazePAM 5 MG TABLET PO PRN ×5 (02:07→21:55)
[2022-12-17] MEDS: PRENATAL VITAMINS W/ FOLIC ACID TABLET (FP) PO SCH (10:17)
[2022-12-17] MEDS: METHOCARBAMOL 500 MG TABLET PO PRN (10:17)
[2022-12-17] MEDS: BACITRACIN 0.9 GM PACKET TP SCH (12:12)
[2022-12-17] MEDS: THIAMINE HCL 100 MG TABLET (FP) PO SCH (21:52)
[2022-12-17] MEDS: MELATONIN 5 MG TABLETS PO SCH (21:52)
[2022-12-17] MEDS: QUEtiapine FUMARATE 100 MG TABLET (FP) PO SCH (21:52)
[2022-12-18] MEDS: BACITRACIN 0.9 GM PACKET TP SCH (09:19)
[2022-12-18] MEDS: METHOCARBAMOL 500 MG TABLET PO PRN ×2 (09:19→16:45)
[2022-12-18] MEDS: hydrOXYzine PAMOATE 25 MG CAPSULE (FP) PO PRN ×2 (09:19→16:45)
[2022-12-18] MEDS: PRENATAL VITAMINS W/ FOLIC ACID TABLET (FP) PO SCH (09:19)
[2022-12-18] MEDS ORDERED: methaDONE HCL 10 MG TABLET (FOR DETOX USE ONLY) PO ONE (10:00)
[2022-12-18] MEDS: cloNIDine HCL 0.1 MG TABLET PO PRN ×2 (12:20→17:41)
[2022-12-18] MEDS: QUEtiapine FUMARATE 100 MG TABLET (FP) PO SCH (21:54)
[2022-12-18] MEDS: THIAMINE HCL 100 MG TABLET (FP) PO SCH (21:54)
[2022-12-18] MEDS: MELATONIN 5 MG TABLETS PO SCH (21:55)
[2022-12-19] MEDS: BACITRACIN 0.9 GM PACKET TP SCH (10:02)
[2022-12-19] MEDS: PRENATAL VITAMINS W/ FOLIC ACID TABLET (FP) PO SCH (10:02)
[2022-12-19] MEDS: METHOCARBAMOL 500 MG TABLET PO PRN ×2 (11:02→18:05)
[2022-12-19] MEDS: hydrOXYzine PAMOATE 25 MG CAPSULE (FP) PO PRN ×2 (11:03→18:05)
[2022-12-19 21:27] VITALS: BP 129/66; PULSE 69; RESP 18; TEMP 98
[2022-12-19] MEDS: MELATONIN 5 MG TABLETS PO SCH (21:40)
[2022-12-19] MEDS: THIAMINE HCL 100 MG TABLET (FP) PO SCH (21:40)
[2022-12-19] MEDS: QUEtiapine FUMARATE 100 MG TABLET (FP) PO SCH (21:40)
[2022-12-20] MEDS: METHOCARBAMOL 500 MG TABLET PO PRN (05:25)
[2022-12-20] MEDS: hydrOXYzine PAMOATE 25 MG CAPSULE (FP) PO PRN (05:25)
[2022-12-20] MEDS ORDERED: methaDONE HCL 10 MG TABLET (FOR DETOX USE ONLY) PO ONE (10:00)
== END 2022-12-20 05:47 | disposition home or self-care (01) | DRG 773 ==
LOC: YASAS 10:58 → Y6N 14:03
PROVIDERS: ADMIT Allergy & Immunology; ATTEND Surgery
PROC: HZ2ZZZZ Detoxification Services for Substance Abuse Treatment (ICD-10-PCS; principal; 2022-12-16)
DX: F11.23 Opioid dependence with withdrawal (principal); F10.20 Alcohol dependence, uncomplicated; F14.20 Cocaine dependence, uncomplicated; F12.20 Cannabis dependence, uncomplicated; F19.280 Other psychoactive substance dependence with psychoactive substance-induced anxiety disorder; F19.282 Other psychoactive substance dependence with psychoactive substance-induced sleep disorder; F31.9 Bipolar disorder, unspecified; Z87.891 Personal history of nicotine dependence; Z28.310 Unvaccinated for COVID-19; Z28.9 Immunization not carried out for unspecified reason
CPT/HCPCS: 36415; 80053; 81025; 85027; 86780; 87389; 87811; C9803-CS; U0003; U0005

== ENCOUNTER 2025-05-14 12:07 | Inpatient (IN) | payer OTHER ==
[2025-05-14] MEDS ORDERED: CEFAZOLIN 2 GM/D5W 2 GM/50 ML ML IVPB ONE (12:46)
[2025-05-14] MEDS ORDERED: VANCOMYCIN/WATER 1250 MG 1,250 MG/250 ML BAG IVPB ONE (13:16)
[2025-05-14 13:23] LABS: ABSOLUTE IMMATURE GRANULOCYTES 0.02 x10^3/uL (0.0-0.031); BASOPHILS # 0.02 x10^3/uL (0.01-0.08); EOSINOPHIL % 1.8 % (0.7-5.8); EOSINOPHILS # 0.08 x10^3/uL (0.04-0.36); HEMATOCRIT 29.4 % (34.1-44.9); HEMOGLOBIN 9.2 g/dL (11.2-15.7); MCHC 31.3 g/dl (32.2-35.5); MEAN CELL VOLUME 80.5 fl (79.4-94.8); MEAN PLT VOLUME 10.2 fl (9.4-12.3); MONOCYTE # 0.22 x10^3/uL (0.24-0.86); PLATELET COUNT 200 x10^3/uL (182-369); RDW 14.3 % (12.1-16.8)
[2025-05-14] MEDS: CEFAZOLIN 2 GM in DEXTROSE 5%-WATER - 50 ML IVPB ONE (13:23)
[2025-05-14] MEDS: VANCOMYCIN/WATER 1250 MG 1,250 MG/250 ML BAG IVPB ONE (13:55)
[2025-05-14 14:06] LABS: POTASSIUM 3.7 mmol/L (3.5-5.1)
[2025-05-14 14:08] LABS: CALCIUM 9.2 mg/dL (8.5-10.1)
[2025-05-14 14:09] LABS: ALBUMIN 2.7 g/dl (3.4-5.0); BLOOD UREA NITROGEN 7.9 mg/dL (7-18)
[2025-05-14 14:12] LABS: CREATININE 0.7 mg/dL (0.55-1.3)
[2025-05-14 14:13] LABS: BILIRUBIN,TOTAL 0.2 mg/dL (0.2-1)
[2025-05-14 14:25] LABS: ERYTHROCYTE SEDIMENTATION RATE 67 mm/hr (0-20)
[2025-05-14] MEDS: methaDONE HCL 10 MG TABLET PO ONE (18:04)
[2025-05-14 18:27] VITALS: BMI 28.7
[2025-05-14] MEDS ORDERED: CEFAZOLIN SODIUM 2 GM VIAL IVPB SCH (18:45)
[2025-05-14] MEDS: CEFAZOLIN 2 GM/D5W 2 GM/50 ML ML IVPB SCH (20:37)
[2025-05-14] MEDS: QUEtiapine FUMARATE 100 MG TABLET (FP) PO SCH (21:44)
[2025-05-15] MEDS: SERTRALINE HCL 25 MG TABLET (FP) PO SCH (10:10)
[2025-05-15] MEDS: ENOXAPARIN NA (PORCINE) 40 MG/0.4 ML DISP.SYRIN SQ SCH (10:10)
[2025-05-15 15:10] LABS: BASOPHILS # 0.04 x10^3/uL (0.01-0.08)
[2025-05-15 15:11] LABS: ABSOLUTE IMMATURE GRANULOCYTES 0.02 x10^3/uL (0.0-0.031); EOSINOPHILS # 0.17 x10^3/uL (0.04-0.36); HEMATOCRIT 32.1 % (34.1-44.9); MCHC 31.2 g/dl (32.2-35.5); MEAN CELL VOLUME 80.3 fl (79.4-94.8); MONOCYTE # 0.36 x10^3/uL (0.24-0.86); MONOCYTE % 6.4 % (4.7-12.5); PLATELET COUNT 228 x10^3/uL (182-369); RDW 14.3 % (12.1-16.8)
[2025-05-15 15:31] LABS: POTASSIUM 4.2 mmol/L (3.5-5.1)
[2025-05-15 15:35] LABS: CALCIUM 8.9 mg/dL (8.5-10.1)
[2025-05-15 15:36] LABS: ALBUMIN 2.8 g/dl (3.4-5.0); BLOOD UREA NITROGEN 9.7 mg/dL (7-18); MAGNESIUM 1.9 mg/dL (1.8-2.4)
[2025-05-15 15:39] LABS: CREATININE 0.6 mg/dL (0.55-1.3); PHOSPHOROUS 4.1 mg/dL (2.5-4.9)
[2025-05-15 15:40] LABS: BILIRUBIN,TOTAL 0.2 mg/dL (0.2-1); TOT PROT 7.3 g/dl (6.4-8.2)
[2025-05-15 16:28] LABS: HIV INTERPRETATION NEGATIVE (NEGATIVE)
[2025-05-15] MEDS: ACETAMINOPHEN 1000 MG/100 ML BAG IVPB PRN (17:55)
[2025-05-15] MEDS: methaDONE HCL 10 MG TABLET PO ONE (18:02)
[2025-05-16] MEDS: VANCOMYCIN/WATER FOR INJ (PEG) 1 GM/200 ML BAG IVPB SCH (00:15)
[2025-05-16] MEDS: AMPICILLIN NA/SULBACTAM NA 3 GM in SODIUM CHLORIDE 100 ML IVPB SCH (01:59)
[2025-05-16] MEDS ORDERED: methaDONE HCL 10 MG TABLET PO PRN (09:41)
[2025-05-16] MEDS: methaDONE HCL 10 MG TABLET PO ONE (10:21)
[2025-05-17] MEDS: SILVER SULFADIAZINE 1% TOP CREAM 400 GM JAR TP SCH (17:16)
[2025-05-17] MEDS: hydrOXYzine PAMOATE 25 MG CAPSULE (FP) PO PRN (18:19)
[2025-05-17] MEDS ORDERED: LORazepam 2 MG/ML SDV VIAL IVPUSH PRN (20:03)
[2025-05-17] MEDS: LORazepam 4 MG/1 ML VIAL IVPUSH PRN (20:36)
[2025-05-18 10:03] VITALS: BP 115/71; PULSE 67; RESP 18; TEMP 97.9
[2025-05-18] MEDS: methaDONE HCL 10 MG TABLET PO ONE (10:09)
[2025-05-20] MEDS ORDERED: methaDONE HCL 10 MG TABLET PO ONE (10:00)
== END 2025-05-18 15:50 | disposition other institution (70) | DRG 383 ==
LOC: JER 12:07 → JERBED 13:23 → INTOOBSV 13:23 → J5S 16:50 → OBSVTOIN 05-16 09:50
PROVIDERS: ADMIT Student in an Organized Health Care Education/Training Program; ATTEND Internal Medicine
DX: L03.113 Cellulitis of right upper limb (principal); L03.114 Cellulitis of left upper limb; F10.239 Alcohol dependence with withdrawal, unspecified; F11.90 Opioid use, unspecified, uncomplicated; F41.9 Anxiety disorder, unspecified; F31.9 Bipolar disorder, unspecified; L98.498 Non-pressure chronic ulcer of skin of other sites with other specified severity
CPT/HCPCS: 36415; 80053; 83735; 84100; 84443; 85025; 85651; 86140; 87040; 87077; 87081; 87389; 87522; 99285-25; G0378